=== PATIENT | male | born 1975 | race African-American/Black ===

== ENCOUNTER 2016-12-21 08:24 | Emergency (ER) | payer SELFPAY | END 2016-12-21 10:22 | disposition home or self-care (01) | LOC: ER 08:24 | DX: S61.551A Open bite of right wrist, initial encounter (principal); W54.0XXA Bitten by dog, initial encounter | CPT/HCPCS: 73110-RT; 90471; 90714; 99284 ==

== ENCOUNTER 2017-01-02 12:39 | Emergency (ER) | payer SELFPAY | END 2017-01-02 16:30 | disposition home or self-care (01) | LOC: ER 12:39 | PROC: 2W3EX1Z Immobilization of Right Hand using Splint (ICD-10-PCS; principal; 2017-01-02) | DX: S62.306A Unspecified fracture of fifth metacarpal bone, right hand, initial encounter for closed fracture (principal); X58.XXXA Exposure to other specified factors, initial encounter | CPT/HCPCS: 73110-RT; 73130-RT; 96372; 99283; J1170; J2405 ==